=== PATIENT | female | born 1990 | race Caucasian/White ===

== ENCOUNTER 2016-11-20 17:44 | Emergency (ER) | payer MEDICARE, MEDICAID ==
[~2016-11-20] VITALS: Ht 163.8 cm; Wt 80.4 kg
[2016-11-20 17:46] VITALS: BP 116/68
[2016-11-20] MEDS ORDERED: IBUPROFEN 200 MG TABLET ONE (19:20)
[2016-11-20] MEDS ORDERED: IBUPROFEN 200 MG TABLET PO ONE (19:30)
== END 2016-11-20 20:00 | disposition home or self-care (01) ==
LOC: ED 19:47
DX: S89.92XA Unspecified injury of left lower leg, initial encounter (principal); J45.909 Unspecified asthma, uncomplicated; X58.XXXA Exposure to other specified factors, initial encounter; Y93.72 Activity, wrestling; Y92.009 Unspecified place in unspecified non-institutional (private) residence as the place of occurrence of the external cause; Y99.9 Unspecified external cause status
CPT/HCPCS: 29505; 99284

== ENCOUNTER 2018-04-11 18:44 | Emergency (ER) | payer MEDICARE, MEDICAID ==
[~2018-04-11] VITALS: Ht 162.6 cm; Wt 59.0 kg
[2018-04-11 19:45] LABS: BASOPHILS # (AUTO) 0.05 x10^3/uL (0-0.1); BASOPHILS % (AUTO) 1 % (0-1); EOSINOPHILS # (AUTO) 0.07 x10^3/uL (0-0.4); EOSINOPHILS % (AUTO) 1 % (1-7); LYMPHOCYTES # (AUTO) 1.23 x10^3/uL (1-3.4); LYMPHOCYTES % (AUTO) 14 % (22-44); MD NO; MEAN CORPUSCULAR HEMOGLOBIN 31.5 pg (27.0-34.8); MEAN CORPUSCULAR HGB CONC 34.3 g/dL (32.4-35.8); MEAN PLATELET VOLUME 7.9 fL (7.4-10.4); MONOCYTES # (AUTO) 0.47 x10^3/uL (0.2-0.8); MONOCYTES % (AUTO) 5 % (2-9); NEUTROPHILS # (AUTO) 6.86 x10^3/uL (1.8-6.8); NEUTROPHILS % (AUTO) 79 % (42-75); PLATELET COUNT 253 x10^3/uL (130-400); RED BLOOD COUNT 3.67 x10^6/uL (3.82-5.3); RED CELL DISTRIBUTION WIDTH 12.7 % (9.6-15.2)
[2018-04-11 19:59] LABS: ANION GAP 8 mmol/L (5-15); CALCIUM 8.8 mg/dL (8.5-10.1); CHLORIDE 109 mmol/L (98-107); CREATININE 0.75 mg/dL (0.55-1.02)
[2018-04-11] MEDS ORDERED: SODIUM CHLORIDE 0.9% 1,000ML IVBOLUS ONE (20:30)
[2018-04-11 21:53] VITALS: BP 94/63
== END 2018-04-11 22:30 | disposition home or self-care (01) ==
LOC: ED 21:17
DX: R55 Syncope and collapse (principal); M41.9 Scoliosis, unspecified; J45.909 Unspecified asthma, uncomplicated
CPT/HCPCS: 36415; 80048; 84703; 85025; 93005; 99285; J7030

== ENCOUNTER 2019-01-31 08:12 | Emergency (ER) | payer MEDICARE, MEDICAID ==
[~2019-01-31] VITALS: Ht 162.6 cm; Wt 60.0 kg
--- NOTE | 2019-01-31 08:34 | NUR ---
Pt ambulates to room from triage with steady gait and balance. KELN.
[2019-01-31] MEDS ORDERED: KETOROLAC 30 MG/1 ML IM ONE (09:00)
[2019-01-31] MEDS ORDERED: KETOROLAC 30 MG/1 ML ONE (09:15)
[2019-01-31 09:30] LABS: BASOPHILS # (AUTO) 0.05 x10^3/uL (0-0.1); BASOPHILS % (AUTO) 1 % (0-1); EOSINOPHILS # (AUTO) 0.14 x10^3/uL (0-0.4); EOSINOPHILS % (AUTO) 3 % (1-7); LYMPHOCYTES # (AUTO) 1.27 x10^3/uL (1-3.4); LYMPHOCYTES % (AUTO) 27 % (22-44); MD NO; MEAN CORPUSCULAR HEMOGLOBIN 30.9 pg (27.0-34.8); MEAN CORPUSCULAR HGB CONC 33.5 g/dL (32.4-35.8); MEAN CORPUSCULAR VOLUME 92.1 fL (80-100); MEAN PLATELET VOLUME 7.8 fL (7.4-10.4); MONOCYTES % (AUTO) 9 % (2-9); NEUTROPHILS # (AUTO) 2.79 x10^3/uL (1.8-6.8); NEUTROPHILS % (AUTO) 60 % (42-75); PLATELET COUNT 239 x10^3/uL (130-400); RED BLOOD COUNT 3.81 x10^6/uL (3.82-5.3); RED CELL DISTRIBUTION WIDTH 13.8 % (9.6-15.2)
[2019-01-31 09:39] LABS: CHLORIDE 111 mmol/L (98-107)
[2019-01-31 09:44] LABS: ANION GAP 8 mmol/L (5-15); CALCIUM 8.8 mg/dL (8.5-10.1); CREATININE 0.65 mg/dL (0.55-1.02)
[2019-01-31] MEDS ORDERED: Ativan (10:21)
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
--- NOTE | 2019-01-31 10:30 | NUR ---
Pt states, " I feel better now. My chest doesn't hurt any more, can I go use a phone?" Pt ambulates with steady gait and balance. NADN. No other needs expressed at this time.
[2019-01-31 11:24] VITALS: BP 104/75
--- NOTE | 2019-01-31 11:24 | NUR ---
Patient given discharge instructions and they have confirmed that they understand the instructions. Patient ambulatory with steady gait. Pt left with all personal belongings and d/c paperwork. NADN. No needs expressed.
== END 2019-01-31 11:26 | disposition home or self-care (01) ==
LOC: ED 10:21
DX: R07.89 Other chest pain (principal); F41.1 Generalized anxiety disorder; R11.0 Nausea; R20.2 Paresthesia of skin; J45.909 Unspecified asthma, uncomplicated
CPT/HCPCS: 36415; 71046; 80048; 82040; 85025; 93005; 96372; 99284; J1885